=== PATIENT | male | born 1955 | race Caucasian/White ===

== ENCOUNTER 2018-09-10 18:56 | Emergency (ER) | payer OTHER ==
[~2018-09-10] VITALS: Ht 180.3 cm; Wt 124.7 kg
[2018-09-10 19:13] VITALS: Ht 180.3 cm; Wt 124.7 kg
[2018-09-10 21:03] VITALS: BP 147/75
== END 2018-09-10 21:03 | disposition home or self-care (01) ==
LOC: ED 18:56
DX: S13.4XXA Sprain of ligaments of cervical spine, initial encounter (principal); S06.0X1A Concussion with loss of consciousness of 30 minutes or less, initial encounter; S00.03XA Contusion of scalp, initial encounter; I10 Essential (primary) hypertension; W22.8XXA Striking against or struck by other objects, initial encounter; Y93.73 Activity, racquet and hand sports; Y92.89 Other specified places as the place of occurrence of the external cause; Y99.8 Other external cause status